=== PATIENT | male | born 1950 | race Caucasian/White ===

== ENCOUNTER 2019-08-10 08:39 | Emergency (ER) | payer MEDICARE ==
[2019-08-10] MEDS ORDERED: ACETAMINOPHEN 325 MG TABLET PO ONE (08:51)
[2019-08-10 08:52] VITALS: BP 141/82
--- NOTE | 2019-08-10 08:56 | ER Document Report ---
HPI - HPI Time Seen by Provider: 08/10/19 08:54 Pain Level: 5 Notes: 69-year-old male presents to the ED with complaints of left shoulder pain after falling early in the morning. Denies any head trauma or change in level of consciousness. Reports pain is 4 out of 10, throbbing achy. Has not tried any [id number] medications for his pain. Worse with time, nothing makes better. Denies fevers, chills, chest pain,palpitations, shortness of breath, dyspnea, nausea, vomiting, diarrhea, abdominal pain, hematuria, speech changes, LH, dizziness, syncope, headaches, neck pain, weakness, bowel or bladder dysfunction, saddle anesthesia, numbness or tingling in bilateral upper or lower extremities equally, muscle paralysis, weakness in bilateral upper or lower extremities equally or rash. Past Medical History - General Information source: Patient - Social History Smoking Status: Current Every Day Smoker Chew tobacco use (# tins/day): No Frequency of alcohol use: Heavy Drug Abuse: None Family History: Reviewed & Not Pertinent Patient has suicidal ideation: No Patient has homicidal ideation: No Past Surgical History: Reports: Hx Appendectomy, Hx Cardiac Surgery, Hx Vascular Surgery - Immunizations Hx Diphtheria, Pertussis, Tetanus Vaccination: Yes Vertical Provider Document - CONSTITUTIONAL Agree With Documented VS: Yes Exam Limitations: No Limitations General Appearance: WD/WN Notes: PHYSICAL EXAMINATION: GENERAL: Well-appearing, well-nourished and in no acute distress. HEAD: Atraumatic, normocephalic. EYES: Pupils equal round and reactive to light, extraocular movements intact, sclera anicteric, conjunctiva are normal. ENT: Nares patent, oropharynx clear without exudates. Moist mucous membranes. NECK: Normal range of motion, supple without lymphadenopathy LUNGS: Breath sounds clear to auscultation bilaterally and equal. No wheezes rales or rhonchi. HEART: Regular rate and rhythm without murmurs ABDOMEN: Soft, nontender, nondistended abdomen. No guarding, no rebound. No masses appreciated. Musculoskeletal: Normal range of motion, no pitting or edema. No cyanosis. Left shoulder pain with abduction and flexion. no pain with supination, pronation, extension. negative , [employer] + 2 BUE equally. APROM in shoulder. DTR +2 in BUE equally. Noted crepitus with APROM in elbow. negative drop arm, neer sign, magdaleno test bilaterally. slightly positive impingement sign all on left. No vascular compromise. Neck with full APROM, no cervical spinal tenderness. No tenderness over clavicles or step off noted bilaterally. Strength 5 out of 5 in bilateral upper extremities equally. NEUROLOGICAL: Cranial nerves grossly intact. Normal speech, normal gait. Normal sensory, motor exams PSYCH: Normal mood, normal affect. SKIN: Warm, Dry, normal turgor, no rashes or lesions noted. Course - Re-evaluation Re-evalutation: 08/10/19 09:04 69-year-old male afebrile vital stable no distress. X-ray of left shoulder shows no fracture. Does show widening of the coracoclavicular interval and inferior displacement of the acromion with respect to the clavicle that was shown on films today, this is new compared to 2010. Discussed findings with Dr. Evan Pérez, supervising physician in the emergency room, who advised that patient can follow-up with orthopedic shoe maker, placed in sling. Patient does not have a dislocation. After performing a Medical Screening Examination, I estimate there is LOW risk for OPEN FRACTURE, COMPARTMENT SYNDROME, DEEP VENOUS THROMBOSIS, ACUTE TENDON RUPTURE, or NEUROVASCULAR INJURY thus I consider the discharge disposition reasonable. I have reevaluated this patient multiple times and no significant life threatening changes are noted. The patient and I have discussed the diagnosis and risks, and we agree with discharging home to closely follow-up with their primary doctor or the referral orthopedist with the understanding that symptoms and presentations can change. We also discussed returning to the Emergency Department immediately if new or worsening symptoms occur. We have discussed the symptoms which are most concerning (e.g., changing or worsening pain, numbness, weakness) that necessitate immediate return - Vital Signs Vital signs: Temp Pulse Resp BP Pulse Ox 98 F 87 18 141/82 H 100 08/10/19 08:46 08/10/19 08:46 08/10/19 08:46 08/10/19 08:46 08/10/19 08:46 Discharge - Discharge Clinical Impression: Injury of left shoulder Qualifiers: Encounter type: initial encounter Qualified Code(s): S49.92XA - Unspecified injury of left shoulder and upper arm, initial encounter Condition: Stable Disposition: HOME, SELF-CARE Instructions: Sling as Treatment ([facility]), Pain Medication Injection ([facility]), Muscle Relaxers ([facility]), Muscle Strain ([facility]), Myalagia (Muscle Pain) ([facility]), Exercise Program for the Shoulder ([facility]), Shoulder Injury ([facility]) Additional Instructions: Return immediately for any new or worsening symptoms. Follow up with primary care provider, call tomorrow to make followup appointment. Do not drive, drink alcohol, or operate heavy machinery while taking muscle relaxers and cause sedation or impairment of cognitive function. Alternate between Tylenol and ibuprofen for pain control. Use sling as directed, do take arm out of sling couple times a day to prevent contracture. Follow-up with orthopedic shoe maker, referral has been given, as well as primary care provider within 5 days Prescriptions: Ibuprofen [Ibu] 800 mg PO Q6HP PRN #20 tablet PRN Reason: Methocarbamol [Robaxin 500 mg Tablet] 500 mg PO QID PRN #15 tablet PRN Reason: Forms: Return to Work Referrals: BETTY CASTELLANOS JR, DO [ACTIVE PROVISIONAL STAFF] - Follow up in 3-5 days WES BEAULIEU MD [COMMUNITY BASED STAFF] - Follow up in 3-5 days
--- NOTE | 2019-08-10 09:49 | RADIOLOGY REPORT (SQ) ---
EXAM DESCRIPTION: SHOULDER LEFT 2 OR MORE VIEWS COMPLETED DATE/TIME: 08/10/2019 9:37 am REASON FOR STUDY: L shoulder pain s/p fall COMPARISON: Chest film 08/23/2011 NUMBER OF VIEWS: Three views. TECHNIQUE: Internal rotation, external rotation, and Y view images acquired of the left shoulder. LIMITATIONS: None. FINDINGS: MINERALIZATION: Normal. BONES: No acute fracture. No worrisome bone lesions. JOINTS: No glenohumeral joint malalignment. There is acromioclavicular joint separation with superio r displacement of the clavicle with respect to the acromion, and widening of the coracoclavicular int erval. These findings are new compared to 2011 chest film. VISUALIZED LUNGS AND RIBS: No pneumothorax. No rib fracture. SOFT TISSUES: No radiopaque foreign body. OTHER: No other significant finding. IMPRESSION: No acute fracture Widening of the coracoclavicular interval and inferior displacement of the acromion with respect to t he clavicle on today's films. This is new compared to 2010 TECHNICAL DOCUMENTATION: JOB ID: [id number] [employer]- All Rights Reserved Reading location - IP/workstation name: [email or web address]
== END 2019-08-10 10:19 | disposition home or self-care (01) ==
LOC: ER 08:39
DX: S43.142A Inferior dislocation of left acromioclavicular joint, initial encounter (principal); W19.XXXA Unspecified fall, initial encounter; F17.200 Nicotine dependence, unspecified, uncomplicated
CPT/HCPCS: 73030; A9270; 99283; L3650